=== PATIENT | female | born 1975 | race Hispanic/Latino ===

== ENCOUNTER 2017-02-13 16:23 | Emergency (ER) | payer OTHER ==
[~2017-02-13] VITALS: Ht 160 cm; Wt 83.2 kg
[2017-02-13 17:56] LABS: ADD MIUA? YES; BILIRUBIN NEGATIVE; BLOOD SMALL; COLOR STRAW ((YELLOW)); GLUCOSE (STRIP) NEGATIVE; KETONES 20; LEUKOCYTES NEGATIVE; NITRITE NEGATIVE; PROTEIN (STRIP) NEGATIVE; SPECIFIC GRAVITY 1.011 (1.000-1.030); UROBILINOGEN 0.2 MG/DL (0.2-1.0)
[2017-02-13 18:05] LABS: BACTERIA NONE SEEN /HPF; EPITHELIAL CELLS RARE /HPF; MUCUS TRACE /LPF; RED BLOOD CELLS 0-5 /HPF (0-5); WHITE BLOOD CELLS 0-5 /HPF (0-5)
[2017-02-13 18:06] LABS: HEMATOCRIT 39.7 % (36.0-46.0); MCH 28.6 PG (29.0-34.0); MCHC 34.3 G/DL (30.0-36.0); MCV 83.6 FL (83-99); MEAN PLAT.VOLUME 10.4 uM^3 (9.5-12.4); PLATELET COUNT 314 K/uL (156-360); RBC DIS.WIDTH-CV 13.1 % (11.8-14.6); RBC DIS.WIDTH-SD 39.8 % (39-53); RED BLOOD COUNT 4.75 M/uL (3.80-5.20); WHITE BLOOD COUNT 15.1 K/uL (4.1-10.2)
[2017-02-13 18:11] LABS: CHLORIDE 104 mEq/L (99-109); POTASSIUM 3.5 mEq/L (3.7-5.4); SODIUM 137 mEq/L (136-147)
[2017-02-13 18:12] LABS: GLUCOSE 93 mg/dL (70-99)
[2017-02-13 18:14] LABS: ANION GAP 11 MEQ/L (2-14); TOTAL BILIRUBIN 0.4 mg/dL (0.0-1.0)
[2017-02-13 18:16] LABS: ALKALINE PHOSPHATASE 60 IU/L (3-129); GFR ESTIMATE (CALCULATED) > 59 mL/min/
[2017-02-13 18:17] LABS: UREA NITROGEN (BUN) 16 mg/dL (9-23)
[2017-02-13 18:19] LABS: LIPASE 38 U/L (1.0-51.0)
[2017-02-13 18:39] LABS: QUANTITATIVE HCG < 4.0 MIU/ML
[2017-02-13] MEDS ORDERED: ZOFRAN ODT4 MG PO (19:04)
[2017-02-13] MEDS ORDERED: TYLENOL WITH C1 EACH PO (19:04)
[2017-02-13] MEDS ORDERED: FLEXERIL10 MG PO (19:04)
[2017-02-13 20:15] VITALS: BP 142/71
== END 2017-02-13 20:18 | disposition home or self-care (01) ==
LOC: EME → EDBD 16:23 → EME 16:23
PROVIDERS: Nurse Practitioner Family
DX: S16.1XXA Strain of muscle, fascia and tendon at neck level, initial encounter (principal); S39.012A Strain of muscle, fascia and tendon of lower back, initial encounter; V49.40XA Driver injured in collision with unspecified motor vehicles in traffic accident, initial encounter
CPT/HCPCS: 70450; 71010; 72070; 72110; 72125; 80053; 81003; 83690; 84702; 85027; 99281; 99285; J2270; J2405; J7030